=== PATIENT | male | born 1950 | race Caucasian/White ===

== ENCOUNTER 2025-06-18 03:30 | Outpatient (CLI) | payer SELFPAY ==
--- NOTE | 2025-06-19 13:10 | W.PFT ---
Date of service: 06/18/25 Time of Service: 10:15 Pulmonary Function Test Result Indications: Esophageal cancer Impression 1. Good patient effort was noted. ATS standards for reproducibility were met. 2. Spirometry showed mild obstructive lung disease with an FEV1 of 80% (2.19 L) 3. DLCO was 71%, consistent with a mild defect in alveolar gas exchange
== END 2025-06-18 03:31 | disposition home or self-care (01) ==
LOC: RT 03:30
DX: C15.5 Malignant neoplasm of lower third of esophagus (principal)
CPT/HCPCS: 94010; 94729; 94618

== ENCOUNTER 2025-07-10 03:02 | Outpatient (CLI) | payer MEDICARE, SELFPAY ==
[2025-07-10 08:24] LABS: Abs Immature Grans 0.03 10^3/uL (0.0-0.06); HCT 43.8 % (40.0-50.0); HGB 14.3 g/dL (13.5-17.5); Immature Grans % 0.3 %; MCH 26.5 pg (27.0-33.0); MCHC 32.6 % (32.0-36.0); MCV 81 fL (80-95); MPV 11.6 fL (8.0-11.0); Platelet Count 271 10^3/uL (130-400); RBC 5.39 10^6/uL (4.36-5.78); RDW 14.2 % (11.8-14.1); RDW-SD 41.3 fL; WBC 9.01 10^3/uL (4.4-10.8)
[2025-07-10 09:05] LABS: ALT 15 U/L (16-63); AST 12 U/L (15-37); Albumin 3.6 g/dL (3.4-5.0); Alkaline Phosphatase 96 U/L (46-116); Anion Gap 5.6 mmol/L (3-11); BUN 9 mg/dL (7-18); Bilirubin, Total 0.6 mg/dL (0.2-1.0); CO2 30.4 mmol/L (21.0-32.0); Calcium 9.6 mg/dL (8.5-10.1); Chloride 101 mmol/L (98-107); Estimated GFR 79.97 (mL/min/1.73m2); Glucose 112 mg/dL (74-106); Magnesium 1.6 mg/dL (1.8-2.4); Potassium 4.1 mmol/L (3.5-5.1); Sodium 137 mmol/L (136-145); Total Protein 7.2 g/dL (6.4-8.2)
== END 2025-07-10 03:03 | disposition home or self-care (01) ==
PROVIDERS: Visit Provider Internal Medicine Medical Oncology
DX: C15.5 Malignant neoplasm of lower third of esophagus (principal)
CPT/HCPCS: 36415; 80053; 83735; 85025

== ENCOUNTER 2025-07-17 11:33 | Outpatient (CLI) | payer MEDICARE, SELFPAY ==
[2025-07-17 09:45] LABS: Abs Immature Grans 0.06 10^3/uL (0.0-0.06); HCT 38.9 % (40.0-50.0); HGB 12.9 g/dL (13.5-17.5); Immature Grans % 1.1 %; MCH 27.2 pg (27.0-33.0); MCHC 33.2 % (32.0-36.0); MCV 82 fL (80-95); MPV 11.8 fL (8.0-11.0); Platelet Count 209 10^3/uL (130-400); RBC 4.75 10^6/uL (4.36-5.78); RDW 13.7 % (11.8-14.1); RDW-SD 40.5 fL; WBC 5.60 10^3/uL (4.4-10.8)
[2025-07-17 10:16] LABS: ALT 16 U/L (16-63); AST 10 U/L (15-37); Albumin 3.4 g/dL (3.4-5.0); Alkaline Phosphatase 84 U/L (46-116); Anion Gap 4.2 mmol/L (3-11); BUN 11 mg/dL (7-18); Bilirubin, Total 0.6 mg/dL (0.2-1.0); CO2 31.8 mmol/L (21.0-32.0); Calcium 9.0 mg/dL (8.5-10.1); Chloride 99 mmol/L (98-107); Estimated GFR 94.03 (mL/min/1.73m2); Glucose 116 mg/dL (74-106); Magnesium 1.4 mg/dL (1.8-2.4); Potassium 4.5 mmol/L (3.5-5.1); Sodium 135 mmol/L (136-145); Total Protein 6.7 g/dL (6.4-8.2)
== END 2025-07-17 11:34 | disposition home or self-care (01) ==
LOC: LBO 11:33
PROVIDERS: Visit Provider Internal Medicine Medical Oncology
DX: C15.5 Malignant neoplasm of lower third of esophagus (principal)
CPT/HCPCS: 36415; 80053; 83735; 85025

== ENCOUNTER 2025-07-24 08:14 | Outpatient (CLI) | payer MEDICARE, SELFPAY ==
[2025-07-24 08:52] LABS: Abs Immature Grans 0.02 10^3/uL (0.0-0.06); HCT 36.9 % (40.0-50.0); HGB 12.1 g/dL (13.5-17.5); Immature Grans % 0.6 %; MCH 26.9 pg (27.0-33.0); MCHC 32.8 % (32.0-36.0); MCV 82 fL (80-95); MPV 11.7 fL (8.0-11.0); Platelet Count 187 10^3/uL (130-400); RBC 4.50 10^6/uL (4.36-5.78); RDW 14.2 % (11.8-14.1); RDW-SD 40.9 fL; WBC 3.46 10^3/uL (4.4-10.8)
[2025-07-24 09:05] LABS: ALT 12 U/L (16-63); AST 10 U/L (15-37); Albumin 3.3 g/dL (3.4-5.0); Alkaline Phosphatase 78 U/L (46-116); Anion Gap 7.5 mmol/L (3-11); BUN 11 mg/dL (7-18); Bilirubin, Total 0.3 mg/dL (0.2-1.0); CO2 28.5 mmol/L (21.0-32.0); Calcium 9.0 mg/dL (8.5-10.1); Chloride 101 mmol/L (98-107); Estimated GFR 94.03 (mL/min/1.73m2); Glucose 126 mg/dL (74-106); Magnesium 1.4 mg/dL (1.8-2.4); Potassium 4.1 mmol/L (3.5-5.1); Sodium 137 mmol/L (136-145); Total Protein 6.8 g/dL (6.4-8.2)
== END 2025-07-24 08:15 | disposition home or self-care (01) ==
LOC: LBO 08:14
PROVIDERS: Visit Provider Internal Medicine Medical Oncology
DX: C15.5 Malignant neoplasm of lower third of esophagus (principal)
CPT/HCPCS: 36415; 80053; 83735; 85025

== ENCOUNTER 2025-07-30 01:44 | Outpatient (CLI) | payer MEDICARE, SELFPAY ==
[2025-07-30 08:51] LABS: Abs Immature Grans 0.01 10^3/uL (0.0-0.06); HCT 38.1 % (40.0-50.0); HGB 12.2 g/dL (13.5-17.5); Immature Grans % 0.4 %; MCH 26.4 pg (27.0-33.0); MCHC 32.0 % (32.0-36.0); MCV 83 fL (80-95); MPV 11.5 fL (8.0-11.0); Platelet Count 213 10^3/uL (130-400); RBC 4.62 10^6/uL (4.36-5.78); RDW 14.6 % (11.8-14.1); RDW-SD 41.2 fL; WBC 2.79 10^3/uL (4.4-10.8)
[2025-07-30 09:16] LABS: ALT 12 U/L (16-63); AST 8 U/L (15-37); Albumin 3.3 g/dL (3.4-5.0); Alkaline Phosphatase 76 U/L (46-116); Anion Gap 5.2 mmol/L (3-11); BUN 11 mg/dL (7-18); Bilirubin, Total 0.7 mg/dL (0.2-1.0); CO2 29.8 mmol/L (21.0-32.0); Calcium 9.4 mg/dL (8.5-10.1); Chloride 99 mmol/L (98-107); Estimated GFR 90.74 (mL/min/1.73m2); Glucose 112 mg/dL (74-106); Magnesium 1.8 mg/dL (1.8-2.4); Potassium 5.0 mmol/L (3.5-5.1); Sodium 134 mmol/L (136-145); Total Protein 6.9 g/dL (6.4-8.2)
== END 2025-07-30 01:45 | disposition home or self-care (01) ==
PROVIDERS: Visit Provider Internal Medicine Medical Oncology
DX: C15.5 Malignant neoplasm of lower third of esophagus (principal)
CPT/HCPCS: 36415; 80053; 83735; 85025

== ENCOUNTER 2025-08-06 07:31 | Outpatient (CLI) | payer MEDICARE, SELFPAY ==
[2025-08-06 09:24] LABS: Abs Immature Grans 0.02 10^3/uL (0.0-0.06); HCT 35.4 % (40.0-50.0); HGB 11.8 g/dL (13.5-17.5); Immature Grans % 0.7 %; MCH 27.8 pg (27.0-33.0); MCHC 33.3 % (32.0-36.0); MCV 83 fL (80-95); MPV 10.7 fL (8.0-11.0); Platelet Count 193 10^3/uL (130-400); RBC 4.25 10^6/uL (4.36-5.78); RDW 15.8 % (11.8-14.1); RDW-SD 44.3 fL; WBC 3.01 10^3/uL (4.4-10.8)
[2025-08-06 09:45] LABS: ALT 14 U/L (16-63); AST 10 U/L (15-37); Albumin 3.0 g/dL (3.4-5.0); Alkaline Phosphatase 75 U/L (46-116); Anion Gap 6.8 mmol/L (3-11); BUN 14 mg/dL (7-18); Bilirubin, Total 0.5 mg/dL (0.2-1.0); CO2 27.2 mmol/L (21.0-32.0); Calcium 9.3 mg/dL (8.5-10.1); Chloride 100 mmol/L (98-107); Estimated GFR 90.74 (mL/min/1.73m2); Glucose 141 mg/dL (74-106); Magnesium 1.4 mg/dL (1.8-2.4); Potassium 3.9 mmol/L (3.5-5.1); Sodium 134 mmol/L (136-145); Total Protein 6.4 g/dL (6.4-8.2)
== END 2025-08-06 07:32 | disposition home or self-care (01) ==
LOC: LBO 07:31
PROVIDERS: Visit Provider Internal Medicine Medical Oncology
DX: C15.5 Malignant neoplasm of lower third of esophagus (principal)
CPT/HCPCS: 36415; 80053; 83735; 85025

== ENCOUNTER 2025-08-13 04:24 | Outpatient (CLI) | payer MEDICARE, SELFPAY ==
[2025-08-13 10:38] LABS: Abs Immature Grans 0.02 10^3/uL (0.0-0.06); HCT 33.9 % (40.0-50.0); HGB 11.2 g/dL (13.5-17.5); Immature Grans % 0.8 %; MCH 27.7 pg (27.0-33.0); MCHC 33.0 % (32.0-36.0); MCV 84 fL (80-95); MPV 11.4 fL (8.0-11.0); Platelet Count 175 10^3/uL (130-400); RBC 4.05 10^6/uL (4.36-5.78); RDW 17.3 % (11.8-14.1); RDW-SD 49.5 fL; WBC 2.41 10^3/uL (4.4-10.8)
[2025-08-13 10:56] LABS: ALT 12 U/L (16-63); AST 9 U/L (15-37); Albumin 3.0 g/dL (3.4-5.0); Alkaline Phosphatase 78 U/L (46-116); Anion Gap 5.9 mmol/L (3-11); BUN 12 mg/dL (7-18); Bilirubin, Total 0.4 mg/dL (0.2-1.0); CO2 29.1 mmol/L (21.0-32.0); Calcium 8.9 mg/dL (8.5-10.1); Chloride 98 mmol/L (98-107); Estimated GFR 97.90 (mL/min/1.73m2); Glucose 124 mg/dL (74-106); Magnesium 1.9 mg/dL (1.8-2.4); Potassium 4.3 mmol/L (3.5-5.1); Sodium 133 mmol/L (136-145); Total Protein 6.5 g/dL (6.4-8.2)
== END 2025-08-13 04:25 | disposition home or self-care (01) ==
LOC: LBO 04:24
PROVIDERS: Visit Provider Internal Medicine Medical Oncology
DX: C15.5 Malignant neoplasm of lower third of esophagus (principal)
CPT/HCPCS: 36415; 80053; 83735; 85025

== ENCOUNTER 2025-08-29 12:25 | Emergency (ER) | payer MEDICARE, SELFPAY ==
[2025-08-29 12:29] VITALS: BP 105/67; PULSE 78; RESP 18; TEMP 36.5; O2SAT 95
--- NOTE | 2025-08-29 13:05 | W.ED.GENAD ---
Discharge Plan Disposition Patient Disposition: Home Condition: Stable Discharge Details Clinical Impression: Weakness, Decrease in appetite Primary Care Provider: Unknown,Unknown ED Provider: Deidre Romeo Home Meds and New Rx's Prescriptions: New ondansetron 4 mg tablet,disintegrating 4 mg PO Q8H PRN (Reason: nausea and vomiting) 4 Days Qty: 9 0RF Rx Instructions: Take 1 tablet up to 3 times daily as needed for nausea and vomiting 20 minutes prior to meals. No Action prochlorperazine maleate 10 mg tablet 10 mg PO PRN Patient Comments: TAKE 1 TABLET BY MOUTH EVERY 6 HOURS NEEDED FOR NAUSEA omeprazole 20 mg capsule,delayed release(DR/EC) 40 mg PO DAILY Rx Instructions: 40 mg orally; oxycodone 5 mg tablet 5 mg PO PRN Patient Comments: TAKE 1 TO 2 TABLETS BY MOUTH EVERY 6 HOURS NEEDED FOR PAIN Eliquis 5 mg tablet 5 mg PO BID magnesium 250 mg tablet 250 mg PO DAILY Discharge Instructions Instructions: Managing loss of appetite and weight loss with cancer, Generalized Weakness (DC), Minimize Weight Loss Additional Instructions: Your magnesium was fairly low today, please drink Gatorade or similar while having symptoms. Please take the nausea medications 20 to 30 minutes before eating or drinking anything. Follow up with primary care provider in 3-5 days. Return to ED sooner if any worsening or concerns. You are placed on a care management list to assist you in getting established with a primary care provider. You are given a liter of normal saline and a gram of magnesium IV piggyback. Thank you for allowing us to care for you today. Discharge Data Discharge Date/Time-TO BE ENTERED AT DEPARTURE: 08/29/25 16:12 HPI General Mode of arrival: ambulatory. Date/Time Provider Initiated Documentation: 08/29/25 12:36. Limitations to Documentation: no limitations. Information obtained by: patient, family, RN notes reviewed and old records reviewed. HPI Narrative: 74-year-old male presents to the ER with a chief complaint of decreased appetite and p.o. intake for the last 2 weeks now food for the last 3 days. He reports feeling weak and having dark urine. He does have a history of esophageal cancer and has had radiation 2 weeks ago. Denies any abdominal pain or diarrhea he does endorse some constipation. Does have some chest pain which he reports is from the radiation and is not new. Reports that when he is able to take some soup that he vomits it up. Related Data Home Medications ?Medication ?Instructions ?Recorded ?Confirmed apixaban 5 mg tablet (Eliquis) 5 mg PO BID 08/29/25 08/29/25 magnesium 250 mg tablet 250 mg PO DAILY 08/29/25 08/29/25 omeprazole 20 mg capsule,delayed 40 mg PO DAILY 08/29/25 08/29/25 release ondansetron 4 mg disintegrating 4 mg PO Q8H PRN nausea and 08/29/25 tablet vomiting 4 days #9 tabs oxycodone 5 mg tablet 5 mg PO PRN 08/29/25 08/29/25 prochlorperazine maleate 10 mg 10 mg PO PRN 08/29/25 08/29/25 tablet Previous Rx's ?Medication ?Instructions ?Recorded ondansetron 4 mg disintegrating 4 mg PO Q8H PRN nausea and 08/29/25 tablet vomiting 4 days #9 tabs Allergies Allergy/AdvReac Type Severity Reaction Status Date / Time bee venom protein (honey bee) Allergy Severe Anaphylaxis Verified 08/29/25 12:35 General Stated Complaint: Nausea/Vomit/Diar BRANDY: 3 Review of Systems All systems reviewed & are unremarkable except as noted in HPI and below Constitutional Constitutional: Reports as per HPI, Reports poor appetite and Reports weakness Gastrointestinal Gastrointestinal: Denies abdominal pain Neurologic Neurologic: Reports weakness Exam Narrative Exam Narrative: Constitutional: Alert and oriented x3. Appears stated age. Normal body habitus. Head: Normocephalic, no trauma. Eyes: Pupils PERRL, Red reflex noted, EOM's intact. Eyelids symmetrical without lesions, discharge, or swelling. ENT: Bilateral TM's WNL, External ear normal to inspection, no mastoid TTP, swelling, or erythema, Nasal turbinates WNL, no nasal discharge. Normal dentition, Posterior pharynx WNL, no exudate. Chest: RRR, Normal S1, S2, distal pulses intact. Resp: Lungs clear to auscultation bilaterally, no wheezes, rales, or rhonchi. Abdomen: Soft, non-distended, Normoactive bowel sounds all 4 quads. Musculoskeletal: Normal gait, Moves all 4 extremities without difficulty. Skin: No suspicious rashes or lesions. Capillary refill less than 2 sec. Neurologic: Cranial nerves II-XII intact. Alert and oriented x 3. Motor: No deficits noted. Sensory: Intact bilaterally all 4 extremities. Hematologic/Lymphatic: No ecchymosis, no lymphadenopathy. Course Vital Signs Vital signs: Vital Signs Temperature 36.5 C 08/29/25 12: Pulse 78 08/29/25 12:29 Respiratory Rate 18 08/29/25 12:29 Blood Pressure 105/67 08/29/25 12:29 Pulse Oximetry 95 08/29/25 12: Temperature 36.5 C 08/29/25 12:29 Temperature Source Oral 08/29/25 12:29 Pulse 78 08/29/25 12:29 Respiratory Rate 18 08/29/25 12:29 Blood Pressure 105/67 08/29/25 12: Blood Pressure Position Supine 08/29/25 12:29 Pulse Oximetry 95 08/29/25 12: Pain Level 8 08/29/25 12:29 Medical Decision Making 74-year-old male presents to the ER with a chief complaint of decreased appetite and p.o. intake for the last 2 weeks now food for the last 3 days. He reports feeling weak and having dark urine. He does have a history of esophageal cancer and has had radiation 2 weeks ago. Denies any abdominal pain or diarrhea he does endorse some constipation. Does have some chest pain which he reports is from the radiation and is not new. Reports that when he is able to take some soup that he vomits it up. CBC CMP lipase, urinalysis ordered, IV normal saline and 4 mg of Zofran. IV infusing without difficulty. CBC shows leukopenia 3.78, hemoglobin 11.2 33.7, sodium slightly low at 133 potassium 4.5, glucose 130 magnesium low at 1.5 will give a gram of magnesium IV bolus. Urinalysis shows 15 ketones small bilirubin no leukocytes no nitrites. This text was generated using [employer] dictation system, please disregard any oddities of phrase or misspellings. Medical Records Medical records reviewed: Yes I reviewed the patient's medical records. Lab Data Lab results reviewed: Yes I reviewed the patient's lab results. Labs: Laboratory Tests Range/Units 08/29/25 08/29/25 13:18 13:58 WBC Cancelled 3.78 L RBC Cancelled 3.98 L Hgb Cancelled 11.2 L Hct Cancelled 33.7 L MCV Cancelled 85 MCH Cancelled 28.1 MCHC Cancelled 33.2 RDW Cancelled 18.2 H Plt Count Cancelled 192 MPV Cancelled 11.7 H Immature Gran % Cancelled 0.5 Neutrophils % Cancelled 82.6 Band Neutrophils % Cancelled Lymphocytes % Cancelled 7.9 Atypical Lymphs % Cancelled Monocytes % Cancelled 8.2 Eosinophils % Cancelled 0.0 Basophils % Cancelled 0.8 Metamyelocytes % Cancelled Myelocytes % Cancelled Promyelocytes % Cancelled Other Cells % Cancelled Nucleated RBC % Cancelled 0.0 Absolute Neutrophils Cancelled 3.12 Absolute Lymphocytes Cancelled 0.30 L Absolute Monocytes Cancelled 0.31 Absolute Eosinophils Cancelled 0.00 Absolute Basophils Cancelled 0.03 RBC Morphology Cancelled Polychromasia Cancelled Hypochromasia Cancelled Poikilocytosis Cancelled Basophilic Stippling Cancelled Anisocytosis Cancelled Microcytosis Cancelled Macrocytosis Cancelled Spherocytes Cancelled Tear Drop Cells Cancelled Ovalocytes Cancelled Stomatocytes Cancelled Dia-Deercroft Bodies Cancelled Shanthi Cells/Echinocytes Cancelled Acanthocytes (Spur) Cancelled Schistocytes Cancelled Sodium (136-145) mmol/L 133 L Potassium (3.5-5.1) mmol/L 4.5 Chloride (98-107) mmol/L 97 L Carbon Dioxide (21.0-32.0) mmol/L 29.0 Anion Gap (3-11) mmol/L 7.0 BUN (7-18) mg/dL 10 Creatinine (0.70-1.30) mg/dL 0.7 Est GFR (CKD-EPI 2020) (mL/min/1.73m2) 97.90 Glucose (74-106) mg/dL 130 H Calcium (8.5-10.1) mg/dL 8.7 Magnesium (1.8-2.4) mg/dL 1.5 L Total Bilirubin (0.2-1.0) mg/dL 0.5 AST (15-37) U/L 18 ALT (16-63) U/L 14 L Alkaline Phosphatase (46-116) U/L 78 Total Protein (6.4-8.2) g/dL 6.2 L Albumin (3.4-5.0) g/dL 2.5 L Lipase (<78) U/L 24 PFSH All Active Problems (Updated 08/29/25 @ 15:27 by Deidre Romeo NP) Decrease in appetite (Acute) Weakness (Acute) Social History Smoking/Tobacco Use Status: Former Tobacco Use Smoking risk assessment performed?: Yes Alcohol Intake: never Substance use type: does not use Housing: house
[2025-08-29 13:29] VITALS: BP 105/67; PULSE 78; RESP 18; TEMP 36.5; O2SAT 95
[2025-08-29 13:40] LABS: Lipase 24 U/L (<78)
[2025-08-29 13:45] LABS: ALT 14 U/L (16-63); AST 18 U/L (15-37); Albumin 2.5 g/dL (3.4-5.0); Alkaline Phosphatase 78 U/L (46-116); Anion Gap 7.0 mmol/L (3-11); BUN 10 mg/dL (7-18); Bilirubin, Total 0.5 mg/dL (0.2-1.0); CO2 29.0 mmol/L (21.0-32.0); Calcium 8.7 mg/dL (8.5-10.1); Chloride 97 mmol/L (98-107); Estimated GFR 97.90 (mL/min/1.73m2); Glucose 130 mg/dL (74-106); Magnesium 1.5 mg/dL (1.8-2.4); Potassium 4.5 mmol/L (3.5-5.1); Sodium 133 mmol/L (136-145); Total Protein 6.2 g/dL (6.4-8.2)
[2025-08-29] MEDS: Ondansetron 4 MG/2 ML VIAL IVP (14:05)
[2025-08-29] MEDS: MAGNESIUM SULFATE 1 GM/100 ML BAG IV_INF (14:06)
[2025-08-29] MEDS: Normal Saline 1,000 ML 1000 ML IV (14:15)
[2025-08-29 14:19] LABS: Abs Immature Grans 0.02 10^3/uL (0.0-0.06); HCT 33.7 % (40.0-50.0); HGB 11.2 g/dL (13.5-17.5); Immature Grans % 0.5 %; MCH 28.1 pg (27.0-33.0); MCHC 33.2 % (32.0-36.0); MCV 85 fL (80-95); MPV 11.7 fL (8.0-11.0); Platelet Count 192 10^3/uL (130-400); RBC 3.98 10^6/uL (4.36-5.78); RDW 18.2 % (11.8-14.1); RDW-SD 55.1 fL; WBC 3.78 10^3/uL (4.4-10.8)
[2025-08-29] MEDS: Ondansetron O.D.T. 4 MG TABEF, 3 TABS/BTL PO (16:07)
[2025-08-29 16:11] LABS: Glucose Negative (Negative)
== END 2025-08-29 16:12 | disposition home or self-care (01) ==
PROVIDERS: Emergency Provider Registered Nurse Emergency
DX: E83.42 Hypomagnesemia (principal); R53.1 Weakness; R63.0 Anorexia; Z85.01 Personal history of malignant neoplasm of esophagus
CPT/HCPCS: 36415; 80053; 83690; 96365; 96366; 96375; 99284; 81003; 83735; 85025; J2405; J3475

== ENCOUNTER 2025-09-10 03:20 | Outpatient (CLI) | payer MEDICARE, SELFPAY ==
--- NOTE | 2025-09-10 | DI.CT_ITS ---
Exam(s) CT CHEST/ABD W EXAM: CT CHEST/ABD W CLINICAL HISTORY: ESOPHAGEAL CA, S/P CHEMO/RADIATION, RESTAGING, C15.5 TECHNIQUE: Imaging Protocol: Axial computed tomography images with coronal and sagittal reformatted images were created and reviewed. Lung Computer Aided Detection (CAD) was utilized. CONTRAST MATERIAL: Intravenous: Omnipaque 350 contrast volume:75 mL Oral: Yes COMPARISON: CT CT CHEST AND ABDOMEN W CONTRAST from 05/18/2025 FINDINGS: CHEST: Tracheobronchial tree: Patent where visualized. No evidence of bronchiectasis. Pulmonary parenchyma: Moderately severe centrilobular emphysematous changes are present. There are few scattered noncalcified nodules present. The largest is in the posterior aspect of the right lower lobe and measures 3 mm (series 10, image 106). There are no focal consolidating infiltrates present. Visualized thyroid gland: Unremarkable. Mediastinum and [place]: No dominant adenopathy or fluid collection. There is concentric thickening of the wall of the distal esophagus from just below the level of the flor to the junction. The findings are consistent with the patient's known esophageal carcinoma. There has been interval placement of an endoluminal stent. There is thickening of the esophagus proximal to the stent causing mild narrowing of the lumen of the esophagus. This is likely extension of the tumor. The AP diameter measures 1 cm. Portions of the gastric wall extend into the esophageal lumen inferiorly which appears to obstruct the stent outlet. There is oral contrast seen with in the esophagus to the level of the distal stent. Some of the oral contrast has passed beyond the distal stent as there is contrast in the small bowel. Pleura: No effusion or pneumothorax. Heart: The heart is not dilated. Coronary artery calcification is present. No pericardial effusion. Pulmonary arteries: No pulmonary emboli are identified. Aorta: Thoracic aorta non-dilated. There is no dissection. Atherosclerotic calcification is present. Lymph nodes: Within normal limits. Soft tissues: Unremarkable. Bones:Within normal limits for the patient's age. ABDOMEN: Liver: Normal density. No measurable mass. Portal, Superior Mesenteric, and Splenic Veins: Unremarkable. Gallbladder and Biliary Tract: No radiodense calculus or dilation. Pancreas: Normal density, no abnormal calcifications or inflammatory process. Spleen: Normal. Adrenals: No masses seen. Kidneys: Normal size, contour and axis. There is a tiny 1-2 mm nonobstructing stone in the lower pole of the right kidney. There are bilateral simple renal cysts. The largest is on the right kidney and measures 5.8 x 4.8 cm. No follow-up is recommended. There is a circum aortic left renal vein. Abdominal Aorta: There is a 4.1 x 3.9 cm infrarenal abdominal aortic aneurysm. Atherosclerotic calcification is present. There is mural thrombus seen in the aneurysm anteriorly. Bowel: No obstruction or bowel wall thickening. Appendix is unremarkable. Peritoneal Cavity: No ascites, collection or mesenteric inflammatory response. No free air. Lymph Nodes: Within normal limits. Bones: Within normal limits for the patient's age. There are no aggressive osseous lesions present. Soft Tissues: Unremarkable. IMPRESSION: 1. No evidence of abdominal metastatic disease. 2. 4.1 x 3.9 cm infrarenal abdominal aortic aneurysm. 3. There has been interval placement of an in the luminal stent in the esophagus across the esophageal tumor. Proximal to the stent, there is esophageal thickening which does mildly narrow the lumen to 1 cm AP diameter. At the distal aspect of the stent portions of the is gastric wall appear to cause obstruction of the outlet of the stent. There is oral contrast which persists throughout the esophagus to the level of the distal stent suspicious for marked narrowing. 4. Moderately severe centrilobular pulmonary emphysema. 5. Stable right lower lobe pulmonary nodule. RADIATION DOSE DELIVERED: 405.46mGy.cm Total DLP DATA REPOSITORY: All CT scans at this facility are submitted to the National Radiology Data Registry (NRDR) Dose Index Registry (DIR) with the [employer] (A[employer]). RADIATION OPTIMIZATION: All CT scans at this facility use at least one of these dose optimization techniques: automated exposure control; mA and/or kV adjustment per patient size (includes targeted exams where dose is matched to clinical indication); or iterative reconstruction.
[2025-09-10] MEDS: Barium Sulfate 2% W/V-Creamy Vanilla Smoothie 450 ML BTL PO (08:56)
[2025-09-10] MEDS: Omnipaque 350 MG/ML 100 ML BTL IJ (09:56)
[2025-09-10] MEDS: Normal Saline Flush 10 ML SYR IVP (09:57)
[2025-09-10] MEDS: Normal Saline - Diluent 50 ML VIAL IJ (09:57)
== END 2025-09-10 03:40 ==
LOC: DI 03:20
PROVIDERS: PCP Nurse Practitioner Family; Visit Provider Nurse Practitioner Family
DX: C15.5 Malignant neoplasm of lower third of esophagus (principal); J43.2 Centrilobular emphysema
CPT/HCPCS: 71260; 74160; J3490

== ENCOUNTER 2025-10-15 10:47 | Outpatient (CLI) | payer MEDICARE, SELFPAY ==
[2025-10-15 10:00] LABS: Abs Immature Grans 0.02 10^3/uL (0.0-0.06); HCT 35.9 % (40.0-50.0); HGB 11.5 g/dL (13.5-17.5); Immature Grans % 0.4 %; MCH 28.8 pg (27.0-33.0); MCHC 32.0 % (32.0-36.0); MCV 90 fL (80-95); MPV 10.9 fL (8.0-11.0); Platelet Count 234 10^3/uL (130-400); RBC 3.99 10^6/uL (4.36-5.78); RDW 16.3 % (11.8-14.1); RDW-SD 54.1 fL; WBC 4.65 10^3/uL (4.4-10.8)
[2025-10-15 10:42] LABS: Magnesium 1.9 mg/dL (1.6-2.6)
[2025-10-15 10:45] LABS: ALT 9 U/L (10-49); AST 15 U/L (<34); Albumin 3.7 g/dL (3.2-5.0); Alkaline Phosphatase 100 U/L (46-116); Anion Gap 7 mmol/L (3-11); BUN 11 mg/dL (9-23); Bilirubin, Total 0.20 mg/dL (0.2-1.2); CO2 28.0 mmol/L (20.0-31.0); Calcium 9.1 mg/dL (8.3-10.6); Chloride 103 mmol/L (98-107); Glucose 94 mg/dL (74-106); Potassium 4.3 mmol/L (3.5-5.1); Sodium 138 mmol/L (136-145); Total Protein 6.8 g/dL (5.7-8.2)
== END 2025-10-15 10:48 | disposition home or self-care (01) ==
LOC: LBO 10:48
PROVIDERS: PCP Nurse Practitioner Family; Visit Provider Internal Medicine Medical Oncology
DX: C15.5 Malignant neoplasm of lower third of esophagus (principal)
CPT/HCPCS: 36415; 80053; 83735; 85025